=== PATIENT | female | born 2000 | race Caucasian/White ===

== ENCOUNTER → 2019-06-18 | Outpatient (CLI) | payer BC, SELFPAY ==
[2019-06-18 15:59] LABS: Chlamydia Trachomatis by PCR Negative (Negative); Neisserai gonorrhoeae by PCR Negative (Negative); Probe Check PASS; Sample Adequacy Control PASS; Specimen Processing Control PASS
== END | disposition home or self-care (01) ==
LOC: LABSPEC 13:36
PROVIDERS: Visit Provider Obstetrics & Gynecology
DX: Z11.3 Encounter for screening for infections with a predominantly sexual mode of transmission (principal)
CPT/HCPCS: 87491; 87591

== ENCOUNTER → 2019-07-02 16:43 | Outpatient (CLI) | payer BC, SELFPAY ==
[2019-07-02 17:05] LABS: Absolute Lymphocyte Count 2.07 X10^3/uL (0.83-4.51); Absolute Neutrophil Count 6.1 X10^3/uL (2.0-7.7); Basophil# 0.04 X10^3/uL; Basophil% 0.4 % (0-1); Eosinophil# 0.12 X10^3/uL; Eosinophils% 1.3 % (0-5); Hematocrit 39.4 % (37-47); Hemoglobin 13.5 g/dL (12.0-15.0); Lymphocyte # 2.07 X10^3/ul (4.0); Lymphocyte % 22.7 % (19-41); Mean Corp Hgb Conc 34.3 g/dL (32-36); Mean Corpuscular Hgb 32.8 pg (27.0-32.0); Mean Corpuscular Volume 95.6 fL (81-99); Mean Platelet Vol. 9.3 fl (6.2-12.0); Monocyte# 0.72 X10^3/uL; Monocyte% 7.9 % (0-10); NRBC Flagged by Analyzer 0 % (0-5); Neutrophil # 6.12 X10^3/uL (2.7-7.7); Neutrophil % 67.4 % (47-70); Platelet Count 166 K/mm3 (150-450); RBC Distribution Width CV 11.1 % (11.6-14.6); RBC Distribution Width SD 39.2 fl (35.1-43.9); Red Blood Count 4.12 M/mm3 (4.2-5.4); White Blood Count 9.1 K/mm3 (4.4-11.0)
[2019-07-02 17:12] LABS: Color, Urine Yellow (Yellow); Glucose, Dipstick Normal (Normal); Ketone-Dipstick 15 mg/dl (Negative); Leukocyte Esterase-Dipstick Negative /ul (Negative); Nitrite-Dipstick Negative (Negative); Occult Blood-Urine Negative /ul (Negative); Protein-Dipstick Negative (Negative); Specific Gravity, Urine 1.015 (1.002-1.030); Urine Bilirubin Dipstick Negative (Negative); Urine Clarity Sl. Cloudy (Clear); Urine Urobilinogen Normal (Normal)
[2019-07-02 18:04] LABS: Amphetamine Urine VISTA NEGATIVE (<1000 ng/mL); Barbiturate Urine VISTA NEGATIVE (< 200 ng/mL); Benzodiazepine Urine VISTA NEGATIVE (< 200 ng/mL); Cocaine Urine VISTA NEGATIVE (< 300 ng/mL); Ecstacy Urine VISTA NEGATIVE (< 500 ng/mL); Methadone Urine VISTA NEGATIVE (< 300 ng/mL); PCP Urine VISTA NEGATIVE (< 25 ng/mL); THC Urine VISTA NEGATIVE (< 50 ng/mL); Vista UDS pH Range 7
[2019-07-03 03:12] LABS: Prenatal RPR NONREACTIVE (NONREACTIVE)
[2019-07-03 09:52] LABS: HIV - WCH Non-Reactive (Nonreactive); Hepatitis B Surface Antigen Non-Reactive (Nonreactive); Hepatitis C Antibody Non-Reactive (Nonreactive); Rubella IgG 32.9 IU/mL
[2019-07-05 09:00] LABS: Free T3 2.7 pg/mL (2.18-3.98); T4 Free Direct 0.77 ng/dL (0.76-1.46)
== END ==
PROVIDERS: Visit Provider Obstetrics & Gynecology
DX: Z34.81 Encounter for supervision of other normal pregnancy, first trimester (principal)
CPT/HCPCS: 36415; 80307; 81002; 84439; 84443; 84481; 85025; 86703; 86762; 86803; 87340

== ENCOUNTER → 2019-11-13 | Outpatient (CLI) | payer BC, SELFPAY ==
[2019-11-13 17:22] LABS: Hematocrit 36.1 % (37-47); Hemoglobin 12.1 g/dL (12.0-15.0); Mean Corp Hgb Conc 33.5 g/dL (32-36); Mean Corpuscular Hgb 33.4 pg (27.0-32.0); Mean Corpuscular Volume 99.7 fL (81-99); Mean Platelet Vol. 9.6 fl (6.2-12.0); Platelet Count 249 K/mm3 (150-450); RBC Distribution Width CV 11.3 % (11.6-14.6); RBC Distribution Width SD 40.8 fl (35.1-43.9); Red Blood Count 3.62 M/mm3 (4.2-5.4); White Blood Count 11.7 K/mm3 (4.4-11.0)
[2019-11-13 17:41] LABS: Free T3 2.2 pg/mL (2.18-3.98); Glucose Challenge Gest 1H 50g 96 mg/dL (70-140); T4 Free Direct 0.71 ng/dL (0.76-1.46); Thyroid Stim Hormone (TSH) 5.75 uIU/mL (0.358-3.74)
== END | disposition home or self-care (01) ==
LOC: LABSPEC 16:52
PROVIDERS: Referring Provider Obstetrics & Gynecology; Visit Provider Obstetrics & Gynecology
DX: O99.280 Endocrine, nutritional and metabolic diseases complicating pregnancy, unspecified trimester (principal); Z3A.00 Weeks of gestation of pregnancy not specified
CPT/HCPCS: 82950; 84439; 84443; 84481; 85027

== ENCOUNTER → 2019-12-26 | Outpatient (CLI) | payer BC, SELFPAY ==
[2019-12-26 13:29] LABS: Free T3 2.5 pg/mL (2.18-3.98); T4 Free Direct 0.81 ng/dL (0.76-1.46); Thyroid Stim Hormone (TSH) 4.25 uIU/mL (0.358-3.74)
[2019-12-29 20:57] LABS: Thyroglobulin Antibody < 1.0 IU/mL (0.0-0.9); Thyroid Peroxidase AB 79 IU/mL (0-34)
== END | disposition home or self-care (01) ==
LOC: WOBLAB 11:44
PROVIDERS: Referring Provider Obstetrics & Gynecology; Visit Provider Obstetrics & Gynecology
DX: O99.283 Endocrine, nutritional and metabolic diseases complicating pregnancy, third trimester (principal); E03.9 Hypothyroidism, unspecified; Z3A.00 Weeks of gestation of pregnancy not specified
CPT/HCPCS: 36415; 84439; 84443; 84481; 86376; 86800

== ENCOUNTER → 2020-01-08 | Outpatient (CLI) | payer BC, SELFPAY | END | disposition home or self-care (01) | LOC: LABSPEC 11:22 | PROVIDERS: Visit Provider Obstetrics & Gynecology | DX: Z36.85 Encounter for antenatal screening for Streptococcus B (principal) | CPT/HCPCS: 87081 ==

== ENCOUNTER 2020-02-04 17:40 | Inpatient (IN) | payer BC, SELFPAY ==
[2020-02-04] VITALS (8 sets, daily range): BP systolic 131–143; BP diastolic 77–95; PULSE 96–108; TEMP 37–37.3; O2SAT 98; BMI 28.6
--- NOTE | 2020-02-04 17:40 | PCM.HP.OB ---
- Problem List (1) 40 weeks gestation of Status: Acute (2) induced hypertension Status: Acute Qualifiers: Trimester: third trimester Qualified Code(s): O13.3 - Gestational [-induced] hypertension without significant proteinuria, third trimester History Date of Admission: 02/04/20 Final ROLY: 02/04/20 Final ROLY Source: US <20 weeks Gestational age: 40 Weeks and 1 Days History of this : This is a 19 year-old, G [1], P [0], at 40 weeks gestational age. Allergies latex Adverse Reaction (Verified 02/04/20 18:30) Itching Home Medications: Home Medications Levothyroxine [Synthroid] 75 mcg PO DAILY 02/04/20 Vits [Prenatabs FA ] 1 tab PO DAILY 02/04/20 Smoking Status: Never smoker Alcohol: None Number of Fetus(es): 1 NST - FHR Rate Baby A Baseline: 130 Variability:: Moderate Accelerations:: 15 x 15 Decelerations:: None NST Reactive:: Yes FHR Category:: Category I Uterine Activity:: Q7-10m History Past Pregnancies: Past Pregnancies: None Labs: Mom's Labs & Results 02/04/20 02/04/20 02/04/20 18:00 18:15 18:15 WBC 11.0 RBC 3.53 L Hgb 10.0 L Hct 31.1 L MCV 88.1 MCH 28.3 MCHC 32.2 RDW Std Deviation 40.3 RDW Coeff of Catherine 12.7 Plt Count 308 MPV 9.9 PT 11.8 INR 0.9 APTT 25.8 Creatinine Estim Creat Clear Calc Est GFR (MDRD) Af Amer Est GFR (MDRD) Non-Af Uric Acid AST ALT U Random Total Protein 33.1 H Urine Creatinine 58.00 Protein/Creatinin Ratio 571 H COVID-19 (WILL) Blood Type Antibody Screen 02/04/20 02/04/20 02/04/20 18:15 18:15 18:45 WBC RBC Hgb Hct MCV MCH MCHC RDW Std Deviation RDW Coeff of Catherine Plt Count MPV PT INR APTT Creatinine 0.56 Estim Creat Clear Calc 150.01 Est GFR (MDRD) Af Amer 177 Est GFR (MDRD) Non-Af 146 Uric Acid 4.7 AST 13 L ALT 13 U Random Total Protein Urine Creatinine Protein/Creatinin Ratio COVID-19 (WILL) Negative Blood Type AB POSITIVE Antibody Screen NEGATIVE Course Did the patient receive Yes care? Labs Blood Type: AB RH: POSITIVE RPR/VDRL/Syphilis Nonreactive Rubella status Immune HbSAg Negative Date Done: 07/02/19 Chlamydia Negative Gonorrhea Negative HIV/AIDS Non-Reactive Group B Strep: Negative Current Obstetrical History Gestational Diabetes No Incompetent Cervix No Infertility No IUGR No Macrosomia No Hypertension/Pre-eclampsia Yes Placenta Previa/Abruption No PTL/PROM No Uterine anomaly No Oligohydramnios No Polyhydramnios No Multiple gestation No Past Medical History Asthma No Diabetes No Hypertension No Heart disease No Mitral valve prolapse No Neurologic/Seizure disorder/ No Migraines Kidney disease No Liver disease No Varicosities No Clotting disorders/Hx of DVT No Thyroid Dysfunction Yes: hypothyroidism Other medical diseases No Psychiatric disorders No Major trauma No Abnormal PAP smear No Sleep apnea No Mammogram in the last 2 years No Social History Marital Status: SINGLE Alleged father Brian Long Hx Smoking No Smoking Status Never smoker Expected Infant Delivery Method: Spontaneous Vaginal Number of Visits: 13 Review of Systems Constitutional: Denies: Chills, Fever, Weight Change HEENT: Denies: Head Aches, Sinus Congestion, Sinus Drainage Cardiovascular: Denies: Chest Pain, Palpitations Respiratory: Denies: Cough, Shortness of breath at rest, Sputum production Gastrointestinal: Denies: Abdominal Pain, Nausea, Vomiting Genitourinary: Denies: Dysuria Musculoskeletal: Denies: Joint Pain, Joint Tenderness Skin: Denies: Rash, Wounds Neurological: Denies: Numbness, Tingling, Focal weakness Psychiatric: Denies: Anxiety, Depression, Homicidal Ideations, Suicidal Ideations Hematologic/ Lymphatic: Denies: Easy Bruising, Easy Bleeding Physical Exam Vitals: Vital Signs Temp Pulse BP Pulse Ox 98.6 F 92 142/84 H 98 02/05/20 07:14 02/05/20 08:03 02/05/20 08:03 02/05/20 07:14 General: Alert, Oriented x3, No apparent distress HEENT: Atraumatic, Normocephalic. Negative for: Thyromegaly, Lymphadenopathy Cardiovascular: Regular rate, Regular Rhythm Lungs: Clear to auscultation Abdomen: Bowel Sounds Present, Gravid Neurological: Deep Tendon Reflexes 2+/4 and Symmetrical, Neuro grossly intact [employer]: Normal external genitalia. Negative for: Vulvar lesions Estimated gestational size: Appropriate for gestational size Presentation: Cephalic Cervix Dilation (cm): 0 Station: -3 Effacement (%): 20 Assessment/Plan All Active Problems 40 weeks gestation of (Acute) induced hypertension (Acute) A/P: at term here for IOL after elevated blood pressures in the office Cytotec induction planned SVE 0/20/-3 soft posterior NST Category I Labetolol protocol as needed Plans in place for labor Expect
[2020-02-04 18:15] LABS: Protein, Urine (Random) 33.1 mg/dL (<11.9); Protein:Creat Ratio 571 mg/g CRE (0-200)
[2020-02-04] MEDS: Lactated Ringers 1,000 ML 50 ML IV (18:15)
[2020-02-04 18:35] LABS: Hematocrit 31.1 % (37-47); Mean Corp Hgb Conc 32.2 g/dL (32-36); Mean Corpuscular Hgb 28.3 pg (27.0-32.0); Mean Corpuscular Volume 88.1 fL (81-99); Mean Platelet Vol. 9.9 fl (6.2-12.0); Platelet Count 308 K/mm3 (150-450); RBC Distribution Width CV 12.7 % (11.6-14.6); RBC Distribution Width SD 40.3 fl (35.1-43.9); Red Blood Count 3.53 M/mm3 (4.2-5.4)
[2020-02-04 18:40] LABS: International Normalized Ratio 0.9; Prothrombin Time (Protime)PT. 11.8 SECONDS (11.7-14.9)
[2020-02-04 18:41] LABS: Partial Thromboplast Time 25.8 Seconds (24.1-36.2)
[2020-02-04 19:30] LABS: AST(SGOT) 13 U/L (15-37); Alanine Aminotransfer ALT/SGPT 13 U/L (13-56); Creatinine, Serum 0.56 mg/dL (0.55-1.02); EST Glomerular Filtration Rate 146 mL/min (>60); Est Glom Filt Rate - Afr Amer 177 mL/min (>60); Estimated Creatinine Clearance 150.01 ml/min; Uric Acid 4.7 mg/dL (2.6-6.0)
[2020-02-04] MEDS: miSOPROStol 25 MCG TABLET VAGINAL (19:44)
[2020-02-04 20:08] LABS: Probe Check PASS; Specimen Processing Control PASS
[2020-02-04] MEDS: Acetaminophen 500 MG Tablet 1000 MG PO (20:51)
[2020-02-04] MEDS: Lactated Ringers 500 ML 999 ML IV (22:51)
[2020-02-05] VITALS (51 sets, daily range): BP systolic 117–151; BP diastolic 65–93; PULSE 77–204; TEMP 36.6–37.8; O2SAT 90–100
[2020-02-05] MEDS: Oxytocin 30 units/NS 500 ml 30 UNITS/500 ML IV.SOLN IV (01:02)
[2020-02-05] MEDS: Ondansetron 4 MG/2 ML Vial IV ×2 (05:19→16:44)
--- NOTE | 2020-02-05 08:19 | PCM.PN.OB ---
Subjective: Feeling well this morning. Reports contraction pain a 4/10. Was able to sleep. No concerns. Objective: VSS. UC Q2-5m. SVE 1.5/50/-2. FHR baseline 130, +accels, -decels, moderate variability - Physical Exam Vitals/I&O's: Vital Signs Temp Pulse BP Pulse Ox 98.6 F 92 142/84 H 98 02/05/20 07:14 02/05/20 08:03 02/05/20 08:03 02/05/20 07:14 Weight: 80.5 kg Body Mass Index (BMI) 28.6 Intake and Output for Last 24 Hours 02/03/20 02/04/20 02/05/20 23:59 23:59 23:59 Intake Total 591.67 / 591.67 1073.06 / 1073.06 Output Total 1150 / 1150 Balance 591.67 / 591.67 -76.94 / -76.94 General: Alert, Oriented x3, Cooperative HEENT: Atraumatic, PERRLA, EOMI, Normocephalic Neck: Supple, No JVD, Negative Carotid Bruits Lungs: Clear to auscultation, Normal air movement Cardiovascular: Regular rate, No murmurs Abdomen: Bowel Sounds Present, Soft, Non Tender Extremities: No edema, Capillary Refill Less than 3 Seconds Skin: No rashes, No breakdown Musculoskeletal: No Tenderness to Palpation of Joints or Extremities Neurological: Cranial nerves II-XII grossly intact Psych/Mental Status: Normal Affect, Appropriate Laboratory Results 02/04/20 18:00: U Random Total Protein 33.1 H, Urine Creatinine 58.00, Protein/Creatinin Ratio 571 H 02/04/20 18:15: WBC 11.0, RBC 3.53 L, Hgb 10.0 L, Hct 31.1 L, MCV 88.1, MCH 28.3, MCHC 32.2, RDW Std Deviation 40.3, RDW Coeff of Catherine 12.7, Plt Count 308, MPV 9.9 02/04/20 18:15: PT 11.8, INR 0.9, APTT 25.8 02/04/20 18:15: Creatinine 0.56, Estim Creat Clear Calc 150.01, Est GFR (MDRD) Af Amer 177, Est GFR (MDRD) Non-Af 146, Uric Acid 4.7, AST 13 L, ALT 13 02/04/20 18:15: Blood Type AB POSITIVE, Antibody Screen NEGATIVE 02/04/20 18:45: COVID-19 (WILL) Negative Current Medications Acetaminophen (Tylenol) 325 - 650 mg PO Q4H PRN PRN PRN Reason: Pain Score 1-3/10 Al Hydroxide/Mg Hydroxide (Mylanta Ii) 15 - 30 ml PO Q4H PRN PRN PRN Reason: INDIGESTION Citric Acid/Sodium Citrate (Bicitra) 30 ml PO X1 PRN PRN Reason: Section Fentanyl Citrate (Sublimaze (100mcg Ampule)) 25 - 50 mcg IV Q2H PRN PRN PRN Reason: Pain Score 4-10/10 Hydralazine HCl (Apresoline Iv) 10 mg IV X1 PRN PRN Reason: Elevated BP Lactated Ringer's () 500 mls @ 999 mls/hr IV .Q31M PRN PRN Reason: Epidural Lactated Ringer's () 500 mls @ 999 mls/hr IV .Q31M PRN PRN Reason: Corrective Measures Last Infusion: 02/04/20 23:26 Dose: Infused Documented by: Lactated Ringer's () 1,000 mls @ 50 mls/hr IV .Q20H [facility] Last Infusion: 02/04/20 23:26 Dose: 50 mls/hr Documented by: Oxytocin/Sodium Chloride () 30 units in 500 mls @ 2 mls/hr IV .Q250H [facility] Last Infusion: 02/05/20 07:50 Dose: 6 mls/hr Documented by: Labetalol HCl (Trandate) 20 mg IV X1 PRN PRN Reason: Elevated BP Labetalol HCl (Trandate) 40 mg IV X1 PRN PRN Reason: Elevated BP Labetalol HCl (Trandate) 80 mg IV X1 PRN PRN Reason: Elevated BP Ondansetron HCl (Zofran) 4 mg IV Q4H PRN PRN PRN Reason: NAUSEA Last Admin: 02/05/20 05:19 Dose: 4 mg Documented by: Prochlorperazine Edisylate (Compazine Iv) 10 mg IV Q6H PRN PRN PRN Reason: NAUSEA Sodium Chloride () 10 - 40 ml IV X1 PRN PRN Reason: SALINE FLUSH Medical Necessity - Tobacco Use Smoking Status: Never smoker Assessment/Plan A/P: at term with IOL d/t PIH Blood pressure remains stable AROM with clear fluid noted Pitocin at 6u NST Category I Expect
[2020-02-05] MEDS: Lactated Ringers 500 ML 999 ML IV ×2 (10:20→14:35)
[2020-02-05] MEDS: fentaNYL-bupivacaine (epidural) 100 ML BAG EPIDURAL ×2 (11:17→16:48)
[2020-02-05] MEDS: Lactated Ringers 1,000 ML 200 ML IV ×2 (11:24→18:50)
[2020-02-05] MEDS: Oxytocin 30 units/NS 500 ml 30 UNITS/500 ML IV.SOLN 334 UNITS IV (21:05)
[2020-02-05] MEDS: Methylergonovine 0.2 MG/ML Ampul IM (21:07)
--- NOTE | 2020-02-05 21:23 | PCM.OPRPT ---
Vaginal Delivery Maternal Presentation: Medically Indicated Induction - Gestational Hypertension Method of Induction: Pitocin, Amniotomy, Cytotec Medical Reason for Induction: Gestational Hypertension Amniotic Membrane Rupture Type: Artificial Amniotic Fluid Description: Clear Final ROLY: 02/04/20 Final ROLY Source: US <20 weeks Gestational age: 40 Weeks and 1 Days Date of Procedure: 02/05/20 Pre-Operative Diagnosis: IUP, Gestational Hypertension Post-Operative Diagnosis: IUP, Gestational Hypertension Surgery/ Procedure Performed: Vacuum Assisted Vaginal Delivery Type of Anesthesia: Epidural Description of Procedure: Spontaneous vaginal delivery of a viable male infant with Apgars of 9/9 from an occiput anterior presentation with clear amniotic fluid and normal three-vessel placenta. First-degree midline episiotomy which extended to a third-degree midline laceration repaired in layers with 3-0 Vicryl and Rapide suture under epidural. Kiwi vacuum used x6 gentle pulls from low outlet to assist with delivery of the head after approximately 3-1/2 hours of pushing and increasing maternal fatigue. No pop offs. Sponges okay. Delivery physician: Keny Saab MD. Presentation: Vertex Placental Delivery Description: Spontaneous Placenta Disposition: [facility] Cord Vessel Description: 3 Vessels Cord Entanglement: None Estimated Blood Loss: 350 cc A gender: Male (1 minute): 9 (5 minute): 9 Episiotomy Description: Midline, 1st degree Laceration: Midline, 3rd degree Medications given after delivery: IV Pitocin, IM Methergin Complications: None
--- NOTE | 2020-02-05 21:31 | DCINST_ITS ---
<Keny Saab - Last Filed: 02/05/20 21:31> Discharge Diet: No Restrictions Discharge Activity: May Shower, May Take a Tub Bath May resume sexual activity in: 4-6 weeks Additional Activity Instructions:: Nothing in the vagina for 4-6 weeks. You may return to work/school in 6 weeks. Call your doctor if you observe: Fever of 101 or Higher, Inability to urinate, Inability to have a bowel movement, Using more than one pad per hour Additional Instructions: If you experience any of the following, contact your healthcare provider. * Bleeding that soaks a pad every hour for 2 hours * Fever 100.4 or higher * Unrelieved incision or abdominal pain * Swelling, redness, discharge or bleeding from your incision or episiotomy site * Your incision begins to separate * Problems urinating (including inability to urinate or burning while urinating). * Visual changes * Severe headache * Flu-like symptoms * Pain or redness in one of both of your breasts * Pain, warmth, tenderness or swelling in your legs, especially the calf area * Frequent nausea and vomiting * Symptoms of depression or anxiety If you experience any of the following, call 911 or go to the nearest Emergency Room. * Chest pain * Problems breathing * Seizure activity * Partial or complete paralysis of a body part, slurred speech, weakness or drooping of the face, or a sudden inability to walk or hold your balance Allergies/Adverse Reactions: Allergies latex Adverse Reaction (Verified 02/04/20 18:30) Itching Medications to take at Discharge Levothyroxine [Synthroid] 75 mcg PO DAILY 02/04/20 Vits [Prenatabs FA ] 1 tab PO DAILY 02/04/20 Ferrous Sulfate 325 mg PO BID #60 tab 02/07/20 Nipple Ointment [Triple Nipple Ointment] 1 applic TOPICAL UD PRN #30 gm 02/07/20 The following prescriptions were given: Ferrous Sulfate 325 mg PO BID #60 tab Transmission Status: Pending to [facility] Nipple Ointment [Triple Nipple Ointment] 1 applic TOPICAL UD PRN #30 gm PRN Reason: sore nipple Prescription Printed Please Follow Up With: Keny Saab MD - [phone] When: Call to make an appointment with your doctor in 6 weeks. Primary Care Physician: Care Physician,No Primary [Primary Care Provider] - Test Results: Test results from this visit will be discussed in further detail at your follow- up appointment, if applicable. <Esther Shetty,Summer - Last Filed: 02/07/20 11:03> Discharge Diet: No Restrictions Additional Instructions: If you experience any of the following, contact your healthcare provider. * Bleeding that soaks a pad every hour for 2 hours * Fever 100.4 or higher * Unrelieved incision or abdominal pain * Swelling, redness, discharge or bleeding from your incision or episiotomy site * Your incision begins to separate * Problems urinating (including inability to urinate or burning while urinating). * Visual changes * Severe headache * Flu-like symptoms * Pain or redness in one of both of your breasts * Pain, warmth, tenderness or swelling in your legs, especially the calf area * Frequent nausea and vomiting * Symptoms of depression or anxiety If you experience any of the following, call 911 or go to the nearest Emergency Room. * Chest pain * Problems breathing * Seizure activity * Partial or complete paralysis of a body part, slurred speech, weakness or drooping of the face, or a sudden inability to walk or hold your balance Please Follow Up With: Keny Saab MD - Call to schedule a nurse blood pressure check When: 1-2 weeks Test Results: Test results from this visit will be discussed in further detail at your follow- up appointment, if applicable.
[2020-02-05] MEDS: Ibuprofen 600 MG Tablet PO (23:10)
[2020-02-05] MEDS: 0.9% Saline Lock 10 ML Syringe IV (23:35)
[2020-02-06 03:53] VITALS: BP 123/73; PULSE 100; RESP 18; TEMP 37
[2020-02-06] MEDS: Acetaminophen 500 MG Tablet 1000 MG PO ×2 (04:05→17:11)
[2020-02-06] MEDS: Levothyroxine 75 MCG Tablet PO (06:14)
[2020-02-06] MEDS: Ibuprofen 600 MG Tablet PO ×3 (06:19→20:08)
[2020-02-06 08:20] VITALS: BP 120/69; PULSE 96; RESP 14; TEMP 36.6
--- NOTE | 2020-02-06 08:40 | PCM.PN.OB ---
Patient Problems: Active and Suspected Problems 40 weeks gestation of (Acute) induced hypertension (Acute) Subjective: No issues overnight. Soreness much improved after her shower. No complaints. latched and is nursing well. Denies heavy lochia, headache, vision changes, abdominal pain or sob. Objective: AVSS - Physical Exam Vitals/I&O's: Vital Signs Temp Pulse Resp BP Pulse Ox 98.6 F 100 18 123/73 H 99 02/06/20 03:53 02/06/20 03:53 02/06/20 03:53 02/06/20 03:53 02/05/20 21:15 Oxygen Delivery Method Room Air Weight: 80.5 kg Body Mass Index (BMI) 28.6 Intake and Output for Last 24 Hours 02/04/20 02/05/20 02/06/20 23:59 23:59 23:59 Intake Total 591.67 / 591.67 5590.00 / 5590.00 Output Total 1750 / 1750 450 / 450 Balance 591.67 / 591.67 3840.00 / 3840.00 -450 / -450 General: Alert, Oriented x3, Cooperative, No apparent distress HEENT: Atraumatic, Normocephalic Lungs: Clear to auscultation, Normal air movement Cardiovascular: Regular rate, Regular Rhythm, Normal S1, Normal S2 Abdomen: Soft, Non Tender, Non-Distended, - - fundus firm and nontender, lochia scant Extremities: No Calf Tenderness, - - +1 b/l LE edema, Neurological: Neuro grossly intact Psych/Mental Status: Normal Affect, Appropriate, Alert and oriented to time, place, person, mood and affect Current Medications Acetaminophen (Tylenol) 1,000 mg PO Q8H PRN PRN PRN Reason: Pain Score 1-3/10 Last Admin: 02/06/20 04:05 Dose: 1,000 mg Documented by: Bisacodyl (Dulcolax) 10 mg RECTAL UD PRN PRN Reason: If no BM Hydrocortisone (Hytone) 1 applic TOPICAL TID PRN PRN; Protocol PRN Reason: Discomfort Ibuprofen (Motrin) 600 mg PO Q6H PRN PRN PRN Reason: Pain Score 1-3/10 Last Admin: 02/06/20 06:19 Dose: 600 mg Documented by: Levothyroxine Sodium (Synthroid) 75 mcg PO DAILY@0600 [facility]AN[facility] Last Admin: 02/06/20 06:14 Dose: 75 mcg Documented by: Methylergonovine Maleate (Methergine) 0.2 mg IM X1 PRN PRN Reason: Excess bleeding/uterine atony Last Admin: 02/05/20 21:07 Dose: 0.2 mg Documented by: Ondansetron HCl (Zofran) 4 mg IV Q4H PRN PRN PRN Reason: Nausea Oxycodone HCl (Oxyir) 5 - 10 mg PO Q4H PRN PRN PRN Reason: Pain Score 4-10/10 Multivit/Folic Acid/Iron (Prenatabs Fa) 1 tablet PO DAILY [facility] Senna/Docusate Sodium (Senokot-S, Vicky-Colace) 1 - 2 tablet PO DAILY PRN PRN PRN Reason: Constipation Simethicone (Mylicon) 80 mg PO PCHS PRN PRN Reason: Indigestion/Stomach pain Sodium Chloride () 5 - 15 ml IV UD PRN PRN Reason: SALINE FLUSH Last Admin: 02/05/20 23:35 Dose: 10 ml Documented by: Throat Lozenges (Dermoplast (Sp)) 1 applic TOPICAL 4X/DAY PRN PRN; Protocol PRN Reason: RASH/TOPICAL IRRITATION Last Admin: 02/06/20 00:03 Dose: 1 applic Documented by: Medical Necessity - Tobacco Use Smoking Status: Never smoker Assessment/Plan All Active Problems 40 weeks gestation of (Acute) induced hypertension (Acute) 19yo PPD#1 s/p VAVD doing well. - -AB positive -hx gHTN - no si/sx preeclampsia -Routine care
--- NOTE | 2020-02-06 08:56 | NURSING ---
0820 blister noted on left nipple
[2020-02-06] MEDS: Prenatal Vits Tablet 1 TABLET PO (10:07)
[2020-02-06] MEDS: Senna/Docusate Sodium 1 Tablet PO (10:07)
[2020-02-06 12:15] VITALS: BP 135/77; PULSE 108; RESP 16; TEMP 36.3
[2020-02-06 16:45] VITALS: BP 131/79; PULSE 104; RESP 14; TEMP 36.6
[2020-02-06 20:00] VITALS: BP 135/87; PULSE 104; RESP 16; TEMP 36.9; O2SAT 97
[2020-02-07] MEDS: Acetaminophen 500 MG Tablet 1000 MG PO (00:48)
[2020-02-07 01:44] VITALS: BP 119/69; PULSE 111; RESP 16; TEMP 37; O2SAT 97
[2020-02-07] MEDS: Levothyroxine 75 MCG Tablet PO (06:34)
--- NOTE | 2020-02-07 07:02 | PCM.PN.OB ---
Patient Problems: Active and Suspected Problems 40 weeks gestation of (Acute) induced hypertension (Acute) Subjective: REports small blister on right nipple, but not painful. She feels well, without headache, vision changes. Swelling same as prior. Denies heavy lochia. Objective: AVSS, HR 100 bpm - Physical Exam Vitals/I&O's: Vital Signs Temp Pulse Resp BP Pulse Ox 98.6 F 111 H 16 119/69 97 02/07/20 01:44 02/07/20 01:44 02/07/20 01:44 02/07/20 01:44 02/07/20 01:44 Oxygen Delivery Method Room Air Weight: 80.5 kg Body Mass Index (BMI) 28.6 Intake and Output for Last 24 Hours 02/05/20 02/06/20 02/07/20 23:59 23:59 23:59 Intake Total 5590.00 / 5590.00 Output Total 1750 / 1750 450 / 450 Balance 3840.00 / 3840.00 -450 / -450 General: Alert, Oriented x3, Cooperative, No apparent distress HEENT: Atraumatic, Normocephalic Lungs: Clear to auscultation, Normal air movement Cardiovascular: Regular rate, Regular Rhythm, Normal S1, Normal S2 Abdomen: Soft, Non Tender, Non-Distended, - - Fundus firm and nontender Extremities: No Calf Tenderness, - - 1+ pitting edema Neurological: Neuro grossly intact Psych/Mental Status: Normal Affect, Appropriate, Alert and oriented to time, place, person, mood and affect Current Medications Acetaminophen (Tylenol) 1,000 mg PO Q8H PRN PRN PRN Reason: Pain Score 1-3/10 Last Admin: 02/07/20 00:48 Dose: 1,000 mg Documented by: Bisacodyl (Dulcolax) 10 mg RECTAL UD PRN PRN Reason: If no BM Hydrocortisone (Hytone) 1 applic TOPICAL TID PRN PRN; Protocol PRN Reason: Discomfort Ibuprofen (Motrin) 600 mg PO Q6H PRN PRN PRN Reason: Pain Score 1-3/10 Last Admin: 02/06/20 20:08 Dose: 600 mg Documented by: Levothyroxine Sodium (Synthroid) 75 mcg PO DAILY@0600 SHANTHI Last Admin: 02/07/20 06:34 Dose: 75 mcg Documented by: Methylergonovine Maleate (Methergine) 0.2 mg IM X1 PRN PRN Reason: Excess bleeding/uterine atony Last Admin: 02/05/20 21:07 Dose: 0.2 mg Documented by: Ondansetron HCl (Zofran) 4 mg IV Q4H PRN PRN PRN Reason: Nausea Oxycodone HCl (Oxyir) 5 - 10 mg PO Q4H PRN PRN PRN Reason: Pain Score 4-10/10 Multivit/Folic Acid/Iron (Prenatabs Fa) 1 tablet PO DAILY [facility] Last Admin: 02/06/20 10:07 Dose: 1 tablet Documented by: Senna/Docusate Sodium (Senokot-S, Vicky-Colace) 1 - 2 tablet PO DAILY PRN PRN PRN Reason: Constipation Last Admin: 02/06/20 10:07 Dose: 1 tablet Documented by: Simethicone (Mylicon) 80 mg PO PCHS PRN PRN Reason: Indigestion/Stomach pain Sodium Chloride () 5 - 15 ml IV UD PRN PRN Reason: SALINE FLUSH Last Admin: 02/05/20 23:35 Dose: 10 ml Documented by: Throat Lozenges (Dermoplast (Sp)) 1 applic TOPICAL 4X/DAY PRN PRN; Protocol PRN Reason: RASH/TOPICAL IRRITATION Last Admin: 02/06/20 00:03 Dose: 1 applic Documented by: Medical Necessity - Tobacco Use Smoking Status: Never smoker Assessment/Plan All Active Problems 40 weeks gestation of (Acute) induced hypertension (Acute) 19yo PPD#2 s/p VAVD doing well. - -AB positive -hx gHTN - no si/sx preeclampsia -Routine care -Mild tachycardia, cbc this am
[2020-02-07 07:18] LABS: Hematocrit 24.3 % (37-47); Hemoglobin 7.5 g/dL (12.0-15.0); Mean Corp Hgb Conc 30.9 g/dL (32-36); Mean Corpuscular Hgb 27.8 pg (27.0-32.0); Mean Platelet Vol. 9.4 fl (6.2-12.0); Platelet Count 259 K/mm3 (150-450); RBC Distribution Width CV 13.2 % (11.6-14.6); White Blood Count 15.9 K/mm3 (4.4-11.0)
[2020-02-07 08:45] VITALS: BP 128/82; PULSE 96; RESP 16; TEMP 36.8
[2020-02-07] MEDS: Prenatal Vits Tablet 1 TABLET PO (10:57)
[2020-02-07] MEDS: Ibuprofen 600 MG Tablet PO (10:57)
--- NOTE | 2020-02-07 11:04 | DS.PCM_ITS ---
Discharge Date and Diagnosis - Problem List Patient Problems: Active and Suspected Problems Anemia (Acute) 40 weeks gestation of (Acute) induced hypertension (Acute) Date of Admission: 02/04/20 Date of Discharge: 02/07/20 - Primary Discharge Diagnosis Acute Problems: Active Problems Anemia (Acute) 40 weeks gestation of (Acute) induced hypertension (Acute) Hospital Course and Treatment Consultations 02/04/20 18:49 Consult: Anesthesia Routine Comment: Reason For Exam: Labor Summary of Care Provided: The patient is a 19 year old F 1 admitted at 40.1 weeks gestational age with gestational hypertension for induction of labor. She had a vacuum assisted vaginal delivery. Her course was uncomplicated. She was discharged to home on day #2. Patient Problems: Active and Suspected Problems Anemia (Acute) 40 weeks gestation of (Acute) induced hypertension (Acute) - Physical Exam Vitals/I&O's: Vital Signs Temp Pulse Resp BP Pulse Ox 98.6 F 111 H 16 119/69 97 02/07/20 01:44 02/07/20 01:44 02/07/20 01:44 02/07/20 01:44 02/07/20 01:44 Oxygen Delivery Method Room Air Weight: 80.5 kg Body Mass Index (BMI) 28.6 Intake and Output for Last 24 Hours 02/05/20 02/06/20 02/07/20 23:59 23:59 23:59 Intake Total 5590.00 / 5590.00 Output Total 1750 / 1750 450 / 450 Balance 3840.00 / 3840.00 -450 / -450 Laboratory Results 02/07/20 07:05: WBC 15.9 H, RBC 2.70 L, Hgb 7.5 L, Hct 24.3 L, MCV 90.0, MCH 27.8, MCHC 30.9 L, RDW Std Deviation 43.0, RDW Coeff of Catherine 13.2, Plt Count 259, MPV 9.4 Current Medications Acetaminophen (Tylenol) 1,000 mg PO Q8H PRN PRN PRN Reason: Pain Score 1-3/10 Last Admin: 02/07/20 00:48 Dose: 1,000 mg Documented by: Bisacodyl (Dulcolax) 10 mg RECTAL UD PRN PRN Reason: If no BM Hydrocortisone (Hytone) 1 applic TOPICAL TID PRN PRN; Protocol PRN Reason: Discomfort Ibuprofen (Motrin) 600 mg PO Q6H PRN PRN PRN Reason: Pain Score 1-3/10 Last Admin: 02/07/20 10:57 Dose: 600 mg Documented by: Levothyroxine Sodium (Synthroid) 75 mcg PO DAILY@0600 [facility] Last Admin: 02/07/20 06:34 Dose: 75 mcg Documented by: Methylergonovine Maleate (Methergine) 0.2 mg IM X1 PRN PRN Reason: Excess bleeding/uterine atony Last Admin: 02/05/20 21:07 Dose: 0.2 mg Documented by: Ondansetron HCl (Zofran) 4 mg IV Q4H PRN PRN PRN Reason: Nausea Oxycodone HCl (Oxyir) 5 - 10 mg PO Q4H PRN PRN PRN Reason: Pain Score 4-10/10 Multivit/Folic Acid/Iron (Prenatabs Fa) 1 tablet PO DAILY [facility] Last Admin: 02/07/20 10:57 Dose: 1 tablet Documented by: Senna/Docusate Sodium (Senokot-S, Vicky-Colace) 1 - 2 tablet PO DAILY PRN PRN PRN Reason: Constipation Last Admin: 02/06/20 10:07 Dose: 1 tablet Documented by: Simethicone (Mylicon) 80 mg PO PCHS PRN PRN Reason: Indigestion/Stomach pain Sodium Chloride () 5 - 15 ml IV UD PRN PRN Reason: SALINE FLUSH Last Admin: 02/05/20 23:35 Dose: 10 ml Documented by: Throat Lozenges (Dermoplast (Sp)) 1 applic TOPICAL 4X/DAY PRN PRN; Protocol PRN Reason: RASH/TOPICAL IRRITATION Last Admin: 02/06/20 00:03 Dose: 1 applic Documented by: Discharge Diet: No Restrictions Discharge Activity: May Shower, May Take a Tub Bath May resume sexual activity in: 4-6 weeks Additional Activity Instructions:: Nothing in the vagina for 4-6 weeks. You may return to work/school in 6 weeks. Call your doctor if you observe: Fever of 101 or Higher, Inability to urinate, Inability to have a bowel movement, Using more than one pad per hour Home Medications: Medications to take at Discharge Levothyroxine [Synthroid] 75 mcg PO DAILY 02/04/20 Vits [Prenatabs FA ] 1 tab PO DAILY 02/04/20 Ferrous Sulfate 325 mg PO BID #60 tab 02/07/20 Nipple Ointment [Triple Nipple Ointment] 1 applic TOPICAL UD PRN #30 gm 02/07/20 Following Prescrptions Were Given to Patient: Ferrous Sulfate 325 mg PO BID #60 tab Transmission Status: Sent to [facility] Nipple Ointment [Triple Nipple Ointment] 1 applic TOPICAL UD PRN #30 gm PRN Reason: sore nipple Prescription Printed Primary Care Physician: Care Physician,No Primary [Primary Care Provider] - Please Follow Up With: Keny Saab MD - [phone] Please Follow Up With: Keny Saab MD - Call to schedule a nurse blood pressure check When: 1-2 weeks Medical Necessity - Tobacco Use Smoking Status: Never smoker Meaningful Use Info Meaningful Use Diagnoses (Choose all that apply): None applicable
== END 2020-02-07 12:40 | disposition home or self-care (01) | DRG 768 ==
PROVIDERS: Obstetrics & Gynecology; Admitting Provider Obstetrics & Gynecology; Visit Provider Obstetrics & Gynecology
DX: O13.4 Gestational [pregnancy-induced] hypertension without significant proteinuria, complicating childbirth (principal); Z37.0 Single live birth; O70.20 Third degree perineal laceration during delivery, unspecified; Z3A.40 40 weeks gestation of pregnancy
CPT/HCPCS: 59025; 59050; 82565; 82570; 84156; 84450; 84460; 84550; 85027; 85610; 85730; 86850; 86900; 86901; 87635; 99218; G2023; J7120; A4216; G0378; J2405; U0003

== ENCOUNTER → 2020-03-17 14:28 | Outpatient (CLI) | payer BC, SELFPAY ==
[2020-02-04 18:29] VITALS: BMI 28.6
== END ==
PROVIDERS: Visit Provider Obstetrics & Gynecology
DX: Z12.4 Encounter for screening for malignant neoplasm of cervix (principal)
CPT/HCPCS: 88175; G0145

== ENCOUNTER 2022-11-22 09:45 | Inpatient (IN) | payer OTHER, SELFPAY ==
[2022-11-22] VITALS (30 sets, daily range): BP systolic 107–181; BP diastolic 64–100; PULSE 76–126; RESP 18; TEMP 36.5–36.8; O2SAT 97–100; BMI 28.7
[2022-11-22] MEDS: Lactated Ringers 1,000 ML 50 ML IV (10:15)
[2022-11-22 10:29] LABS: Absolute Lymphocyte Count 1.77 X10^3/uL (0.83-4.51); Absolute Neutrophil Count 6.3 X10^3/uL (2.0-7.7); Basophil# 0.05 X10^3/uL; Basophil% 0.5 % (0-1); Eosinophil# 0.15 X10^3/uL; Eosinophils% 1.6 % (0-5); Hemoglobin 10.8 g/dL (12.0-15.0); Lymphocyte # 1.77 X10^3/ul (0.83-4.51); Lymphocyte % 18.8 % (19-41); Mean Corp Hgb Conc 31.8 g/dL (32-36); Mean Corpuscular Hgb 27.8 pg (27.0-32.0); Mean Corpuscular Volume 87.6 fL (81-99); Mean Platelet Vol. 9.9 fl (6.2-12.0); Monocyte# 0.97 X10^3/uL; Monocyte% 10.3 % (0-10); NRBC Flagged by Analyzer 0 % (0-5); Neutrophil # 6.33 X10^3/uL (2.7-7.7); Neutrophil % 67.3 % (47-70); Platelet Count 294 K/mm3 (150-450); RBC Distribution Width CV 13.1 % (11.6-14.6); RBC Distribution Width SD 41.2 fl (35.1-43.9); Red Blood Count 3.88 M/mm3 (4.2-5.4); White Blood Count 9.4 K/mm3 (4.4-11.0)
[2022-11-22] MEDS: Oxytocin 15 Units/NS 250ml 15 UNITS/250 ML IV.SOLN 2 UNITS IV (10:54)
[2022-11-22 11:23] LABS: Syphilis Antibodies Non-reactive
[2022-11-22] MEDS: LACTATED RINGERS 500 ML 999 ML IV (13:05)
--- NOTE | 2022-11-22 13:11 | HP.PCM.OB_ITS ---
HPI - General General Date of Admission: 11/22/22 Date of Service: 11/22/22 Chief Complaint: induction of labor HPI Narrative VASQUEZ GONZALES, is a 23 2 para 1 who presents at 40 weeks gestation for induction of labor. She has had no vaginal bleeding or leaking fluid. Has had occasional contractions. was complicated to date by mild pyelectasis she also had a history of a third-degree laceration. Maternal Data Information Final ROLY: 11/22/22 Gestational age: 40 0/7 PFSH [facility] Medical History (Updated 11/22/22 @ 13:[address] Rolanda Law MD) Anxiety pyelectasis Gestational diabetes Gestational HTN induced hypertension Home Medications levothyroxine 75 mcg tablet 75 mcg PO DAILY hypothyroid 02/04/20 [History Last Taken 02/04/20 08:00 75 mcg] vits,calcium no.78-iron fumarate-folic acid 29 mg-1 mg tablet 1 tab PO DAILY 02/04/20 [History Last Taken 02/04/20 08:00 1 tab] Nipple Ointment [Triple Nipple Ointment] 1 applic topical UD PRN sore nipple #30 grams 02/07/20 [Rx Last Taken Unknown] ferrous sulfate 325 mg (65 mg iron) tablet 325 mg PO BID #60 tabs 02/07/20 [Rx Last Taken Unknown] Allergy/AdvReac Type Severity Reaction Status Date / Time latex AdvReac Itching Verified 02/04/20 18:30 Social History Smoking Status: Never smoker History Elective abortions Hx Para 1 Spontaneous abortions Hx # Term Pregnancies Ectopic pregnancies Hx # Pregnancies Multiple births # of living children ROS Constitutional Constitutional: Denies fatigue, fever(s) or malaise Eyes Eyes: Denies change in vision ENT HEENT: Denies dizziness or headache(s) Cardiovascular Cardiovascular: Denies chest pain, dyspnea or lightheadedness Respiratory/Chest Respiratory/Chest: Denies cough or dyspnea Gastrointestinal Gastrointestinal: Denies change in bowel habits Genitourinary Genitourinary: Denies burning urination or genital lesions Integumentary Integumentary: Denies rash Neurologic Neurologic: Denies confusion, dizziness, headache(s), numbness or weakness Vital Signs Vital Signs Vital Signs: 11/22/22 10:22 11/22/22 10:22 11/22/22 11:00 Pulse Rate 80 Blood Pressure 134/89 H 118/73 BP Systolic 134 118 BP Diastolic 89 73 11/22/22 11:00 Pulse Rate 83 Blood Pressure BP Systolic BP Diastolic Weight Weight: 80.739 kg Body Mass Index (BMI) 28.7 Physical Exam Const alert and no apparent distress General Appearance: cooperative HEENT normocephalic Resp normal respiratory effort Cardio regular rate GI soft to palpation GI Narrative: gravid, nontender, appropriate for gestational age Extremity no calf tenderness General Extremity: edema Skin no wounds Rashes: No rashes noted Psych activity/motor behavior normal Labs Labs Labs: Blood Type AB POSITIVE Antibody Screen NEGATIVE Hct 34.0 % (37-47) L Hgb 10.8 g/dL (12.0-15.0) L Syphilis Total Ab Non-reactive Rubella IgG Antibody 32.9 IU/mL Hep Bs Antigen Non-Reactive (Nonreactive) HIV 1&2 Antibody Non-Reactive (Nonreactive) Glucose 1 Hr 50 gm 96 mg/dL (70-140) Rhogam given: No Assessment & Plan (1) History of third degree perineal laceration: PLAN: Estimated weight is less than 4000 g clinically and pelvis clinically adequate to anticipate vaginal delivery. May have epidural or other pain control measures as needed Risk benefits alternatives to Pitocin with official rupture membranes for induction were discussed, consent was signed and she desires to proceed. Declined primary section.
[2022-11-22] MEDS: fentaNYL-bupivacaine (epidural) 100 ML BAG EPIDURAL (13:52)
[2022-11-22] MEDS: Oxytocin 15 Units/NS 250ml 15 UNITS/250 ML IV.SOLN 83 UNITS IV (15:50)
--- NOTE | 2022-11-22 15:57 | EX.PCM.OBRPT ---
Assessment & Plan (1) (spontaneous vaginal delivery): (2) 39 weeks gestation of : (3) Second degree laceration of perineum, delivered, current hospitalization: Maternal Data Information Final ROLY: 11/29/22 Gestational age: 39 0/7 Vaginal Delivery Maternal Presentation Maternal Presentation: Medically Indicated Induction Type of Induction: Pitocin and Amniotomy Operative Information Date of Procedure: 11/22/22 Pre-Operative Diagnosis: labor Post-Operative Diagnosis: same Surgery / Procedure Performed: Spontaneous Vaginal Delivery transmission calibration engineer #1: [email or web address] Gastelum [email or web address] Type of Anesthesia: Epidural Special Medications: none Drain: Mccullough to straight drain Estimated Blood Loss: 300 Time of Delivery: 15:28 Findings Description of Procedure: A vigorous male infant was delivered SOCO over a second-degree perineal laceration. The remainder the infant was delivered with maternal pushing and gentle traction only in less than 15 seconds. The Pitocin infusion was initiated for active management of the third stage. The cord was clamped and cut after it stopped pulsating. The was attended to by the waiting nursing staff. The placenta was delivered spontaneously and intact. The cervix and vagina were intact. The second-degree perineal laceration was repaired with 3-0 Vicryl suture in a running standard fashion. Sponge and needle counts were correct. A vaginal sweep was completed by me. Presentation: SOCO Amniotic Membrane Rupture Type: Artificial Amniotic Fluid Description: Clear Placental Delivery Description: Spontaneous Placenta Disposition: [facility] Cord Vessel Description: 3 Vessels Cord Entanglement: None Infant A Gender: Male (1 minute): 8 (5 minute): 9 Delayed Cord Clamping: Yes Post Vaginal Delivery Medications Given After Delivery: IV Pitocin Episiotomy Description: None Laceration: 2nd degree Complication Complications: None
[2022-11-22] MEDS: Acetaminophen 500 MG Tablet PO (16:45)
[2022-11-22] MEDS: Ibuprofen 600 MG Tablet PO (20:29)
[2022-11-22] MEDS: Acetaminophen 500 MG Tablet 1000 MG PO (22:49)
[2022-11-23 00:21] VITALS: BP 136/65; PULSE 73; RESP 16; TEMP 36.7
[2022-11-23] MEDS: Ibuprofen 600 MG Tablet PO ×2 (03:15→09:11)
[2022-11-23 03:20] VITALS: BP 138/70; PULSE 82; RESP 18; TEMP 36.8
[2022-11-23] MEDS: Acetaminophen 500 MG Tablet 1000 MG PO ×2 (06:13→13:47)
[2022-11-23 07:40] VITALS: BP 130/83; PULSE 79; RESP 14; TEMP 36.7; O2SAT 98
--- NOTE | 2022-11-23 09:01 | PN.OBGYN_ITS ---
Subjective Subjective Patient seen at bedside. Feeling good. Denies any pain. Denies any headache, vision changes, dizziness, SOB or CP. Desires discharge home today. independently. Objective Data Objective Data Vital Signs: Vital Signs Temp Pulse Resp BP Pulse Ox O2 Del Method 98.0 F 79 14 130/83 H 98 Room Air 11/23/22 07:40 11/23/22 07:40 11/23/22 07:40 11/23/22 07:40 11/23/22 07:40 11/23/22 07:40 Oxygen Delivery Method Room Air Weight: 178 lb Body Mass Index (BMI) 28.7 Intake & Output: Intake and Output for Last 24 Hours 11/21/22 11/22/22 11/23/22 23:59 23:59 23:59 Intake Total 1239.41 / 1239.41 Output Total 1000 / 1300 300 / 300 Balance 239.41 / -60.59 -300 / -300 Lab / Micro Data Result Diagrams: 11/22/22 10:15 Labs: Laboratory Results - last 24 hr 11/22/22 10:15: WBC 9.4, RBC 3.88 L, Hgb 10.8 L, Hct 34.0 L, MCV 87.6, MCH 27.8, MCHC 31.8 L, RDW Std Deviation 41.2, RDW Coeff of Catherine 13.1, Plt Count 294, MPV 9.9, Immature Gran % (Auto) 1.500 H, Neut % (Auto) 67.3, Lymph % (Auto) 18.8 L, [place] % (Auto) 10.3 H, Eos % (Auto) 1.6, Baso % (Auto) 0.5, Absolute Neuts (auto) 6.3, Absolute Lymphs (auto) 1.77, Nucleated RBC % 0 11/22/22 10:15: Blood Type AB POSITIVE, Antibody Screen NEGATIVE 11/22/22 10:15: Syphilis Total Ab Non-reactive ROS Eyes Eyes: Denies blurry vision, change in vision or spots in vision ENT HEENT: Denies dizziness or headache(s) Cardiovascular Cardiovascular: Denies abdominal pain, chest pain or dyspnea Respiratory/Chest Respiratory/Chest: Denies cough, dyspnea, shortness of breath at rest or shortness of breath with exertion Gastrointestinal Gastrointestinal: Denies abdominal pain, diarrhea or vomiting Genitourinary Genitourinary: Denies change in urinary stream, difficulty urinating or dysuria Musculoskeletal Musculoskeletal: Reports none Integumentary Integumentary: Denies rash Neurologic Neurologic: Denies dizziness, headache(s), memory loss or weakness Physical Exam Const alert and no apparent distress General Appearance: cooperative and comfortable Exam Limitations: no limitations HEENT normocephalic Eyes General Eye: normal appearance of both eyes Neck full ROM General: normal visual inspection Chest Chest: symmetrical chest wall rise Resp normal respiratory effort and normal air movement Effort and Inspection: symmetric chest movement Auscultation: clear to auscultation bilaterally Cardio regular rate and regular rhythm GI normal to inspection, nondistended, normoactive bowel sounds Back/Spine normal ROM Extremity full ROM and no calf tenderness General Extremity: normal exam except as noted Skin no rashes or lesions noted Neuro CN's II-XII intact bilaterally Psych mental status grossly normal Assessment & Plan (1) (spontaneous vaginal delivery): (2) Second degree laceration of perineum, delivered, current hospitalization: (3) Anemia: (4) Care and examination of lactating mother: PLAN: Plan PPD 1 Routine care support D/C home with follow up in office
--- NOTE | 2022-11-23 09:03 | DCINST_ITS ---
Discharge Instructions Diet Discharge Diet: No restrictions Activity Discharge Activity: Return to Normal Activity, May Shower and May Take a Tub Bath May resume sexual activity in: 4-6 weeks Weight Bearing Status: Weight bearing as tolerated Dressing / Incision Call your doctor if you observe: Inability to urinate, Using more than 1 pad per hour, Shortness of breath, Dizziness, Swelling in the ankles, Chest pain, Calf discomfort and Uncontrolled pain Follow Up Care When: Within 10 days Test Results: Test results from this visit will be discussed in further detail at your follow- up appointment, if applicable. Discharge Plan Admission Admit Date/Time: 11/22/22 09:45 Primary Reason for Your Visit: Labor and Delivery Attending Provider: Rolanda Law Primary Care Provider: Jan Sanford Discharge Orders/Prescriptions Prescriptions: Continued levothyroxine 75 MCG tablet 75 mcg PO DAILY vit,[id number] 1 TABLET tablet 1 tab PO DAILY Nipple Ointment [Triple Nipple Ointment] ointment 1 applic topical UD PRN (Reason: sore nipple) Qty: 30 0RF Rx Instructions: APPLY SPARINGLY TO [place] AREA AFTER FEEDING 3-4 TIMES PER DAY NEEDED ferrous sulfate 325 MG tablet 325 mg PO BID Qty: 60 0RF Discontinued aspirin 81 mg Capsule 81 mg PO DAILY Referrals / Follow Up: Jan Sanford MD [Primary Care Provider] - Disposition Disposition (needs filled in before D/C Order can be placed): Home, Self Care
[2022-11-23 11:31] VITALS: BP 118/56; PULSE 87; RESP 14; TEMP 36.9
[2022-11-23 19:50] VITALS: BP 124/80; PULSE 93; RESP 15; TEMP 36.9
== END 2022-11-23 20:00 | disposition home or self-care (01) | DRG 807 ==
PROVIDERS: Admitting Provider Obstetrics & Gynecology; PCP Family Medicine; Referring Provider Obstetrics & Gynecology; Visit Provider Obstetrics & Gynecology
DX: O70.1 Second degree perineal laceration during delivery (principal); Z37.0 Single live birth; Z3A.40 40 weeks gestation of pregnancy; Z86.32 Personal history of gestational diabetes
CPT/HCPCS: 59025; 59050; 85025; 86780; 86850; 86900; 86901; 99221; J7120; G0378